=== PATIENT | female | born 1955 | race Caucasian/White ===

== ENCOUNTER → 2018-10-16 | Outpatient (CLI) | payer MEDICARE ==
--- NOTE | 2018-10-16 16:06 | RADIOLOGY IMAGING REPORT ---
FACILITY: [facility] [place] PATIENT NAME: Mia Rich : 1955 MR: [id number] V: [id number] EXAM DATE: ORDERING PHYSICIAN: ALDA MUNSON TECHNOLOGIST: Location: [facility] Patient: Mia Rich : 1955 Visit/Account:[id number] Date of Sevice: 10/16/2018 CHEST PA AND LAT History: Cough and shortness of breath FINDINGS: Comparison studies: None. Tubes and Lines: None. Lungs and pleura: Well aerated. No evidence of focal consolidation or pleural effusions. Mediastinum: normal. Cardiac silhouette: normal . Osseous structures: A moderate dextroconvex thoracic scoliosis Additional findings: 6 mm oval calcification projects the left upper quadrant the abdomen. This appe ars to be above the expected level of the kidneys and may be in the spleen is of doubtful clinical si gnificance. IMPRESSION: Thoracic scoliosis. No acute cardiopulmonary pathology identified. Report Dictated By: Norberto June MD at 10/16/2018 3:59 PM Report E-Signed By: Norberto June MD at 10/16/2018 4:00 PM WSN:[email or web address]
== END ==
LOC: RAD 14:42
PROVIDERS: ATTEND Family Medicine
DX: M41.24 Other idiopathic scoliosis, thoracic region (principal); R05 Cough
CPT/HCPCS: 71046